=== PATIENT | male | born 1970 | race Caucasian/White ===

== ENCOUNTER 2019-08-21 14:51 | Emergency (ER) | payer SELFPAY ==
--- NOTE | 2019-08-21 16:41 | ER Document Report ---
ED Respiratory Problem - General Chief Complaint: Cough Stated Complaint: COUGH/DIFFICULTY BREATHING Time Seen by Provider: 08/21/19 16:00 Primary Care Provider: VIKAS LACY MD [ACTIVE STAFF] - Follow up as needed Mode of Arrival: Ambulatory Information source: Patient Notes: 48-year-old male no previous medical problems presents to the emergency room complaining of a cough for the past 2 weeks. Denies any fevers complains of body aches, no nausea, no vomiting, no recent travel. No COVID-19 exposure. Has tried Advil along with several omka-qxj-vcnxdie cold medications without relief. No known ill contacts. TRAVEL OUTSIDE OF THE [place] IN LAST 30 DAYS: No - Related Data Allergies/Adverse Reactions: No Known Allergies Allergy (Unverified 08/21/19 16:12) Past Medical History - General Information source: Patient - Social History Smoking Status: Current Every Day Smoker Chew tobacco use (# tins/day): No Frequency of alcohol use: 2-3 beers daily Drug Abuse: None Family History: Reviewed & Not Pertinent Patient has homicidal ideation: No Review of Systems - Review of Systems Constitutional: No symptoms reported EENT: No symptoms reported Cardiovascular: No symptoms reported Respiratory: Cough. denies: Short of breath, Wheezing Gastrointestinal: No symptoms reported Musculoskeletal: Muscle pain Hematologic/Lymphatic: No symptoms reported Neurological/Psychological: No symptoms reported -: Yes All other systems reviewed and negative Physical Exam - Vital signs Vitals: Temp Pulse Resp BP Pulse Ox 98.1 F 102 H 22 H 154/96 H 95 08/21/19 14:57 08/21/19 14:57 08/21/19 14:57 08/21/19 14:57 08/21/19 14:57 - Notes Notes: VITAL SIGNS: Within normal limits. GENERAL: Mild acute distress, non-toxic appearance. HEAD: Normal with no signs of head trauma. EYES: PERRLA, EOMI, conjunctiva normal, no discharge. EARS: Hearing grossly intact. NOSE: Normal. THROAT: Oropharynx is normal. NECK: Normal range of motion, no tenderness, supple, no lymphadenopathy, No adenopathy, no JVD. CHEST: Clear breath sounds bilaterally. No wheezes, rales, or rhonchi. CARDIAC: Regular rate and rhythm. S1 and S2, without murmurs, gallops, or rubs. VASCULAR: No Edema. Peripheral pulses normal and equal in all extremities. ABDOMEN: Normal and soft with no tenderness, no masses or pulsatile masses. No organomegaly. Positive bowel sounds x4. No CVA tenderness noted bilaterally. GASTROINTESTINAL: Bowel sounds normal GENITOURINARY: Normal, No tenderness LYMPATHTIC: No lymphadenopathy noted. MUSCULOSKELETAL: Good range of motion of all major joints. Extremities without clubbing, cyanosis or edema. NEUROLOGICAL: Alert and oriented x 3. No focal sensory or strength deficits. Speech normal. Follows commands appropriately. PSYCHIATRIC: Normal Affect, judgement and mood. SKIN: Normal appearance with no rashes or lesions. Course - Re-evaluation Re-evalutation: 08/21/19 18:23 Patient is resting comfortably reviewed all test results with patient. Discussed with patient that I will treat for clinical presentation of possible early pneumonia aware of negative chest x-ray. Will discharge home on doxycycline and Tessalon Perles. He was counseled need to follow-up with a primary care physician if not improving in 2 to 3 days. On-call physician was provided. Patient was given strict return to the emergency room guidelines. Return for any new or worsening symptoms. All questions were answered. Patient verbalized understanding and agrees with plan of care. 08/22/19 00:46 - Vital Signs Vital signs: Temp Pulse Resp BP Pulse Ox 98.6 F 86 18 130/68 H 98 08/21/19 18:32 08/21/19 18:32 08/21/19 18:32 08/21/19 18:32 08/21/19 18:32 - Diagnostic Test Radiology reviewed: Reports reviewed Discharge - Discharge Clinical Impression: Cough Condition: Stable Disposition: HOME, SELF-CARE Instructions: Bronchitis ([facility]), Cough Suppressant & Expectorant Medications Additional Instructions: Rest, push fluids, take medications as prescribed. Follow-up with her primary care physician if not improving in 2 to 3 days. Return to the emergency room for any new or worsening symptoms. Prescriptions: Benzonatate 200 mg PO TID 10 Days #30 capsule Doxycycline Monohydrate 100 mg PO BID #20 capsule Referrals: VIKAS LACY MD [ACTIVE STAFF] - Follow up as needed
[2019-08-21 17:41] LABS: A TYPE INFLUENZA AG NEGATIVE (NEGATIVE); B INFLUENZA AG NEGATIVE (NEGATIVE)
--- NOTE | 2019-08-21 17:44 | RADIOLOGY REPORT (SQ) ---
EXAM DESCRIPTION: CHEST SINGLE VIEW IMAGES COMPLETED DATE/TIME: 08/21/2019 4:57 pm REASON FOR STUDY: cough COMPARISON: None. EXAM PARAMETERS: NUMBER OF VIEWS: One view. TECHNIQUE: Single frontal radiographic view of the chest acquired. RADIATION DOSE: NA LIMITATIONS: None. FINDINGS: LUNGS AND PLEURA: No opacities, masses or pneumothorax. No pleural effusion. MEDIASTINUM AND HILAR STRUCTURES: No masses. Contour normal. HEART AND VASCULAR STRUCTURES: Heart normal in size. Normal vasculature. BONES: No acute findings. HARDWARE: None in the chest. OTHER: No other significant finding. IMPRESSION: NO ACUTE RADIOGRAPHIC FINDING IN THE CHEST. TECHNICAL DOCUMENTATION: JOB ID: [id number] 2010 [employer] All Rights Reserved Reading location - IP/workstation name: [email or web address]
[2019-08-21 18:34] VITALS: BP 130/68
== END 2019-08-21 18:32 | disposition home or self-care (01) ==
LOC: ER 14:51
DX: R05 Cough (principal); M79.10 Myalgia, unspecified site; F17.200 Nicotine dependence, unspecified, uncomplicated
CPT/HCPCS: 71045; 87804; 99283

== ENCOUNTER 2019-10-06 16:07 | Emergency (ER) | payer SELFPAY ==
[2019-10-06] MEDS ORDERED: RINGERS SOLUTION,LACTATED 1,000 ML IV ONE (16:22)
--- NOTE | 2019-10-06 16:27 | ER Document Report ---
ED Medical Screen (RME) - General Chief Complaint: Alcohol Withdrawl Stated Complaint: ETOH WITHDRAWL Time Seen by Provider: 10/06/19 16:18 Mode of Arrival: Ambulatory Information source: Patient Notes: HPI; 48 y/o male presents to the emergency room for medical clearance so that he can go to [facility] for detox. Patient states he has been drinking for approximately 40 years. Last drink at 7 AM this morning. States he only drinks beer. Blood alcohol at [facility] was a 0.344. Currently asymptomatic from withdrawal. States he is tried to quit on his own in the past and want to being hospitalized for 17 days for DTs. Denies any suicidal homicidal ideation. PE: Alert and oriented x3. No acute distress noted. Lungs: To auscultation without rales, rhonchi, wheezes. Heart: Regular rate and rhythm without murmurs, rubs, gallops. I have greeted and performed a rapid initial assessment of this patient. A comprehensive ED assessment and evaluation of the patient, analysis of test results and completion of the medical decision making process will be conducted by additional ED providers. I have specifically instructed the patient or family members with the patient to immediately return to any nursing staff should anything change in the patient's condition or with their chief complaint. TRAVEL OUTSIDE OF THE [place] IN LAST 30 DAYS: No - Related Data Allergies/Adverse Reactions: No Known Allergies Allergy (Unverified 08/21/19 16:12) Home Medications: potassium Past Medical History - Social History Chew tobacco use (# tins/day): No Frequency of alcohol use: Heavy Physical Exam - Vital signs Vitals: Temp Pulse Resp BP Pulse Ox 98.3 F 100 20 138/93 H 98 10/06/19 16:17 10/06/19 16:17 10/06/19 16:17 10/06/19 16:17 10/06/19 16:17 Course - Vital Signs Vital signs: Temp Pulse Resp BP Pulse Ox 98.3 F 100 20 138/93 H 98 10/06/19 16:20 10/06/19 16:17 10/06/19 16:17 10/06/19 16:17 10/06/19 16:17
[2019-10-06 16:56] LABS: APPEARANCE,URINE CLEAR; BILIRUBIN,URINE NEGATIVE (NEGATIVE); COLOR,URINE YELLOW; GLUCOSE, URINE NEGATIVE (NEGATIVE); KETONES,URINE NEGATIVE (NEGATIVE); LEUKOCYTE ESTERASE,URINE NEGATIVE (NEGATIVE); NITRITE,URINE NEGATIVE (NEGATIVE); PROTEIN,URINE NEGATIVE (NEGATIVE); URINE SPECIFIC GRAVITY 1.008; UROBILINOGEN,URINE NEGATIVE mg/dL (<2.0)
[2019-10-06 17:05] LABS: HEMATOCRIT 44.7 % (37.9-51.0); HEMOGLOBIN 15.8 g/dL (13.5-17.0); MEAN CORPUSCULAR HGB CONC 35.4 g/dL (32.0-36.0); MEAN CORPUSCULAR VOLUME 99 fl (80-97); PLATELET COUNT 214 10^3/uL (150-450); RED BLOOD COUNT 4.51 10^6/uL (4.35-5.55); RED CELL DISTRIBUTION WIDTH 12.7 % (11.5-14.0); WHITE BLOOD COUNT 4.2 10^3/uL (4.0-10.5)
[2019-10-06 17:09] LABS: URINE AMPHETAMINES SCREEN NEGATIVE; URINE BARBITURATES SCREEN NEGATIVE; URINE BENZODIAZEPINES SCREEN NEGATIVE; URINE COCAINE SCREEN NEGATIVE; URINE MARIJUANA (THC) SCREEN NEGATIVE; URINE METHADONE SCREEN NEGATIVE; URINE PHENCYCLIDINE SCREEN NEGATIVE
[2019-10-06 17:10] LABS: ALBUMIN 4.7 g/dL (3.5-5.0); ALCOHOL 279 mg/dL (NONE DETECTED); ALKALINE PHOSPHATASE 114 U/L (38-126); ANION GAP 15 (5-19); ASPARTATE AMINO TRANSFERASE 135 U/L (17-59); BILIRUBIN,DIRECT 0.4 mg/dL (0.0-0.4); BILIRUBIN,TOTAL 0.8 mg/dL (0.2-1.3); BLOOD UREA NITROGEN 7 mg/dL (7-20); CALCIUM 9.2 mg/dL (8.4-10.2); CARBON DIOXIDE 25 mmol/L (22-30); CHLORIDE 102 mmol/L (98-107); GLUCOSE 110 mg/dL (75-110); POTASSIUM 4.5 mmol/L (3.6-5.0); TOTAL PROTEIN 8.9 g/dL (6.3-8.2)
[2019-10-06 17:15] LABS: ACETAMINOPHEN < 10 ug/mL (10-30); SALICYLATE < 1.0 mg/dL (2.0-20.0)
[2019-10-06 17:38] LABS: ABSOLUTE LYMPHOCYTES# (MANUAL) 1.5 10^3/uL (0.5-4.7); ABSOLUTE MONOCYTES # (MANUAL) 0.6 10^3/uL (0.1-1.4); BASOPHILS % (MANUAL) 0 % (0-2); EOSINOPHILS % (MANUAL) 5 % (0-6); LYMPHOCYTES % (MANUAL) 36 % (13-45); MONOCYTES % (MANUAL) 14 % (3-13); SEGMENTED NEUTROPHILS % (MAN) 45 % (42-78); TOTAL CELLS COUNTED 100
[2019-10-06 17:40] LABS: PLATELET COMMENT ADEQUATE
--- NOTE | 2019-10-06 18:00 | ER Document Report ---
ED General - General Chief Complaint: Alcohol Withdrawl Stated Complaint: ETOH WITHDRAWL Time Seen by Provider: 10/06/19 16:18 Mode of Arrival: Ambulatory TRAVEL OUTSIDE OF THE [place] IN LAST 30 DAYS: No - HPI Notes: Patient is a 48-year-old male who presents to the emergency department for evaluation from [facility]. The patient presented there for help with alcohol. He has a long history of drinking alcohol. He states he switched to beer, drinks about a case of beer daily, has done so for years. He does have a history of alcohol withdrawal and seizures. Patient states he is been trying to cut back at home but it is "not working." He denies any suicidal or homicidal ideation, no visual or auditory hallucination. He states his last drink was at 7 AM this morning. He presented to [facility] had a high GIANA, they sent him here for further evaluation, including LFTs, blood alcohol. They requested blood alcohol less than 250. The patient denies any pain. He states he has had some mild weakness and occasional nausea. He has had some calf cramps, he has been taking potassi um for those. - Related Data Allergies/Adverse Reactions: No Known Allergies Allergy (Unverified 08/21/19 16:12) Home Medications: potassium Past Medical History - General Information source: Patient - Social History Smoking Status: Current Every Day Smoker Chew tobacco use (# tins/day): No Frequency of alcohol use: Heavy Family History: Reviewed & Not Pertinent Neurological Medical History: Reports: Hx Seizures - Alcohol withdrawal Review of Systems - Review of Systems Constitutional: See HPI, Weakness EENT: No symptoms reported Cardiovascular: No symptoms reported Respiratory: No symptoms reported Gastrointestinal: See HPI Genitourinary: No symptoms reported Musculoskeletal: See HPI Skin: No symptoms reported Neurological/Psychological: No symptoms reported Physical Exam - Vital signs Vitals: Temp Pulse Resp BP Pulse Ox 98.3 F 100 20 138/93 H 98 10/06/19 16:17 10/06/19 16:17 10/06/19 16:17 10/06/19 16:17 10/06/19 16:17 - Notes Notes: This is a 48-year-old gentleman who appears older than his stated age, no acute distress. He exhibits some mild rhinophyma, but otherwise. He is cooperative with examiner, makes good eye contact. Vital signs reviewed, please refer to chart. Head is normocephalic, atraumatic. Pupils equal round, reactive to light. Neck is supple without meningismus. Heart is regular rate and rhythm. Lungs are clear to auscultation bilaterally. Abdomen is soft, nontender, normoactive bowel sounds throughout. Extremities without cyanosis, clubbing. Posterior calves are nontender. Peripheral pulses are equal. Skin is warm and dry. Patient is awake, alert, neurological exam is nonfocal. Course - Re-evaluation Re-evalutation: 10/06/19 18:14 Patient presents to the emergency department for evaluation. Laboratory investigations are ordered. The patient is currently stable, although mildly tachycardic. Patient is not hallucinating, claims only mild nausea has not any emesis. His blood alcohol is only mildly elevated. LFTs only mildly elevated. Given his mild tachycardia, despite fluids, I will go ahead and give him some Ativan. I do believe he would tolerate oral Ativan without difficulty. We will redraw blood alcohol. 10/06/19 19:58 Patient's blood alcohol on recheck is below 250. He was able to ambulate to the bathroom. His vital signs have improved. At this point, I believe he is a ppropriate for alcohol detox treatment at [facility]. He will be transferred there. - Vital Signs Vital signs: Temp Pulse Resp BP Pulse Ox 98.4 F 100 14 148/92 H 97 10/06/19 19:54 10/06/19 16:17 10/06/19 19:45 10/06/19 19:45 10/06/19 19:45 - Laboratory Result Diagrams: 10/06/19 16:35 10/06/19 16:35 Laboratory results interpreted by me: 10/06/19 10/06/19 16:35 16:35 MCV 99 H MCH 35.0 H Monocytes % (Manual) 14 H AST 135 H ALT 118 H Total Protein 8.9 H Salicylates < 1.0 L Acetaminophen < 10 L - Diagnostic Test Radiology reviewed: Reports reviewed - EKG Interpretation by Me Additional EKG results interpreted by me: 10/06/19 18:21 Sinus mechanism with a rate of 90 bpm. Normal axis and intervals. No acute ST changes concerning for ischemia or infarction. No old studies available for comparison. Discharge - Discharge Clinical Impression: Alcohol abuse Alcohol intoxication Qualifiers: Complication of substance-induced condition: uncomplicated Qualified Code(s): F10.920 - Alcohol use, unspecified with intoxication, uncomplicated Condition: Stable Disposition: OTHER Instructions: Alcohol Withdrawl ([facility]), Chronic Alcoholism ([facility]) Additional Instructions: Your blood alcohol is now below 250. You are not nauseated. You were going to be sent directly to [facility] for further care of your alcohol intoxication and dependence. Return to the emergency department with worsening or new concerning symptoms of any sort.
[2019-10-06] MEDS ORDERED: LORAZEPAM INJ 2 MG/1 ML VIAL IV ONE (18:18)
[2019-10-06 19:58] VITALS: BP 148/92
--- NOTE | 2019-10-07 20:29 | EKG REPORT ---
SEVERITY:- NORMAL ECG - SINUS RHYTHM : Confirmed by: Yoseph Howell 07-Oct-2019 20:28:59
== END 2019-10-06 20:20 | disposition other institution (70) ==
LOC: ER 16:07
DX: F10.239 Alcohol dependence with withdrawal, unspecified (principal); R53.1 Weakness; R11.0 Nausea; R25.2 Cramp and spasm; Z79.899 Other long term (current) drug therapy; F17.200 Nicotine dependence, unspecified, uncomplicated
CPT/HCPCS: 93005; 99285; 96361; 96374; 36415; 80307 ×4; 85025; 80053; 81001; 93010; J2060; J7120